=== PATIENT | male | born 1975 | race Caucasian/White ===

== ENCOUNTER → 2019-09-17 10:06 | Outpatient (BNVA) | payer BC, SELFPAY | PROVIDERS: Family Provider Family Medicine; PCP Family Medicine; Visit Provider Registered Nurse | DX: E11.9 Type 2 diabetes mellitus without complications (principal) | CPT/HCPCS: 80053; 83036 ==

== ENCOUNTER → 2020-05-07 11:08 | Outpatient (BNVA) | payer BC, SELFPAY | PROVIDERS: Family Provider Family Medicine; PCP Family Medicine; Visit Provider Registered Nurse | DX: E11.9 Type 2 diabetes mellitus without complications (principal) | CPT/HCPCS: 80053; 80061; 83036; 83721; 85025 ==

== ENCOUNTER 2021-07-13 18:50 | Emergency (ER) | payer SELFPAY ==
[2021-07-13] VITALS (16 sets, daily range): BP systolic 140–180; BP diastolic 85–104; PULSE 86–110; RESP 14–29; TEMP 37.1; O2SAT 91–100; BMI 28.0
--- NOTE | 2021-07-13 18:51 | CTR_ITS ---
PROCEDURE INFORMATION: Exam: CT Head Without Contrast Exam date and time: 07/13/2021 6:55 PM Age: 45 years old Clinical indication: Syncope and collapse; Additional info: AMS TECHNIQUE: Imaging protocol: Computed tomography of the head without contrast. Radiation optimization: All CT scans at this facility use at least one of these dose optimization techniques: automated exposure control; mA and/or kV adjustment per patient size (includes targeted exams where dose is matched to clinical indication); or iterative reconstruction. COMPARISON: CT head wo con* [id number] 01/19/2016 9:31 PM RADIATION DOSE METRICS: Total DLP (mGy-cm): 1437.75 FINDINGS: Brain: Normal. No hemorrhage. Unremarkable white matter. No mass effect. Cerebral ventricles: No ventriculomegaly. Paranasal sinuses: Mucosal thickening in the left frontal sinus. The other sinuses are clear. No air-fluid level. Mastoid air cells: Visualized mastoid air cells are well aerated. Bones/joints: Unremarkable. No acute fracture. Soft tissues: Unremarkable. CT/CT head wo con* [id number] IMPRESSION: No acute intracranial abnormality.
--- NOTE | 2021-07-13 18:59 | CTR_ITS ---
PROCEDURE INFORMATION: Exam: CT Angiography Head With Contrast, Arteriography Exam date and time: 07/13/2021 7:26 PM Age: 45 years old Clinical indication: Syncope and collapse; Additional info: Ams-acute unresponsive on arrival TECHNIQUE: Imaging protocol: Computed tomography angiography of the head with contrast. Exam focused on the arteries. 3D rendering (Not supervised by radiologist): MIP and/or 3D reconstructed images were created by the technologist. Radiation optimization: All CT scans at this facility use at least one of these dose optimization techniques: automated exposure control; mA and/or kV adjustment per patient size (includes targeted exams where dose is matched to clinical indication); or iterative reconstruction. Contrast material: OMNIPAQUE 350; Contrast volume: 75 ml; Contrast route: INTRAVENOUS (IV); COMPARISON: CT head wo con* [id number] 07/13/2021 6:55 PM RADIATION DOSE METRICS: Total DLP (mGy-cm): 2260 FINDINGS: ANTERIOR CIRCULATION: Right internal carotid artery: Unremarkable. Intracranial segment is patent with no significant stenosis. No aneurysm. Right middle cerebral artery: Unremarkable. No occlusion or significant stenosis. No aneurysm. Right anterior cerebral artery: Unremarkable. No occlusion or significant stenosis. No aneurysm. Left internal carotid artery: Unremarkable. Intracranial segment is patent with no significant stenosis. No aneurysm. Left middle cerebral artery: Unremarkable. No occlusion or significant stenosis. No aneurysm. Left anterior cerebral artery: Unremarkable. No occlusion or significant stenosis. No aneurysm. POSTERIOR CIRCULATION: Right vertebral artery: Unremarkable. No occlusion or significant stenosis. No aneurysm. Left vertebral artery: Unremarkable. No occlusion or significant stenosis. No aneurysm. Basilar artery: Unremarkable. No occlusion or significant stenosis. No aneurysm. Right posterior cerebral artery: Unremarkable. No occlusion or significant stenosis. No aneurysm. Left posterior cerebral artery: There is moderate severity short segment stenosis at the P1 segment origin of the left posterior cerebral artery without occlusion. Brain: No definite mass, mass effect, or midline shift. Cerebral ventricles: No ventriculomegaly. Bones/joints: Unremarkable. No acute fracture. Soft tissues: Unremarkable. PROCEDURE INFORMATION: Exam: CT Angiography Neck With Contrast Exam date and time: 07/13/2021 7:26 PM Age: 45 years old Clinical indication: Syncope and collapse; Additional info: Ams-acute unresponsive on arrival TECHNIQUE: Imaging protocol: Computed tomography angiography of the neck with contrast. 3D rendering (Not supervised by radiologist): MIP and/or 3D reconstructed images were created by the technologist. Radiation optimization: All CT scans at this facility use at least one of these dose optimization techniques: automated exposure control; mA and/or kV adjustment per patient size (includes targeted exams where dose is matched to clinical indication); or iterative reconstruction. Contrast material: OMNIPAQUE 350; Contrast volume: 75 ml; Contrast route: INTRAVENOUS (IV); COMPARISON: CT head wo con* [id number] 07/13/2021 6:55 PM RADIATION DOSE METRICS: Total DLP (mGy-cm): 2260 FINDINGS: Right common carotid artery: No stenosis. No dissection or occlusion. Right internal carotid artery: No significant stenosis of the extracranial segment. No dissection or occlusion. Small volume plaque in the bifurcation. Right external carotid artery: No occlusion or stenosis of the origin. Left common carotid artery: No stenosis. No dissection or occlusion. Left internal carotid artery: No significant stenosis of the extracranial segment. No dissection or occlusion. Small volume plaque in the bifurcation. Left external carotid artery: No occlusion or stenosis of the origin. Right vertebral artery: No stenosis. No dissection or occlusion. Left vertebral artery: No stenosis. No dissection or occlusion. Soft tissues: Normal. No significant soft tissue swelling. Bones/joints: No acute fracture. CT/CT angio headneck* [id number] IMPRESSION: Negative for intracranial large arterial vessel occlusion. IMPRESSION: Less than 50% carotid artery stenosis. REFERENCES: NASCET CRITERIA. The degree of internal carotid artery stenosis is based on NASCET criteria. Normal is no stenosis. Mild is less than 50% stenosis. Moderate is 50-69% stenosis. Severe is 70% to 99% stenosis. Total occlusion is no detectable patent lumen.
--- NOTE | 2021-07-13 18:59 | ECG_ITS ---
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 Measurements Intervals [place] Rate: 107 P: 23 MN: 136 QRS: 1 QRSD: 97 T: 51 QT: 343 QTc: 459 Interpretive Statements SINUS TACHYCARDIA NONSPECIFIC T-WAVE ABNORMALITY Compared to ECG 05/15/2018 03:47:17 T-wave abnormality now present Sinus rhythm no longer present Incomplete right bundle-branch block no longer present Electronically Signed On 07-13-2021 20:46:39 CDT by Khoa King M.D. [id number]
--- NOTE | 2021-07-13 18:59 | XRR_ITS ---
PROCEDURE INFORMATION: Exam: XR Chest Exam date and time: 07/13/2021 7:08 PM Age: 45 years old Clinical indication: Shortness of breath; Additional info: AMS TECHNIQUE: Imaging protocol: XR of the chest. Views: 1 view. COMPARISON: CR Chest 1 [place] [id number] 05/15/2018 12:39 AM FINDINGS: Lungs: Unremarkable. No consolidation. Pleural spaces: Unremarkable. No pleural effusion. No pneumothorax. Heart/Mediastinum: Unremarkable. No cardiomegaly. Bones/joints: Unremarkable. XR/XR chest 1V portable [id number] IMPRESSION: No acute findings.
--- NOTE | 2021-07-13 19:00 | W.ED.AMS ---
HPI - Altered Mental Status General: Chief Complaint: Altered Mental Status Stated Complaint: AMS, CP, SOB Time Seen by Provider: 07/13/21 18:58 Limitations: altered mental status History of Present Illness: Mr. Montes De Oca is a 45-year-old gentleman with history of poorly controlled diabetes who presents to the emergency department due to altered mental status. Upon initial presentation history is limited by patient's mental status. Apparently, per EMS report, he was at work when he had severe onset suddenly of chest pain and shortness of breath. He went to the bathroom and was subsequently found down with twitching like movements. EMS administered Ativan which stopped these movements. No reported history of seizures. History otherwise limited by mental status changes. Onset (ago): minute(s) Severity: severe Review of Systems General: Reports: ROS unobtainable due to mental status PFS ED PFSH: Medical History Diabetes type 2, controlled Social History Smoking and tobacco status: never smoked Physical Exam Const: EXAM LIMITATIONS: altered mental status GENERAL APPEARANCE: well developed, lethargic and ill appearing ORIENTATION/CONSCIOUSNESS: Yes lethargic HENMT: COMMON NORMALS: normocephalic and atraumatic HEAD & SCALP: normocephalic and atraumatic THROAT: posterior oropharynx normal Eye: COMMON NORMALS: conjunctivae normal CONJUNCTIVA: Yes conjunctivae normal SCLERA: sclerae normal Neck/C-Spine: COMMON NORMALS: supple GENERAL: Yes trachea midline Resp: COMMON NORMALS: normal respiratory effort AUSCULTATION: diminished lung sounds Cardio: COMMON NORMALS: regular rhythm RATE: tachycardic RHYTHM: regular rhythm GI: COMMON NORMALS: Soft to palpation PALPATION: Yes Soft to palpation and No Tenderness to palpation present (GI) PERCUSSION: normal to percussion Extremity: GENERAL: Yes normal exam except as noted and No edema Neuro: SENSORIUM/ORIENTATION: Yes Orientation impaired and Yes lethargic Psych: MEMORY/COGNITION: Yes cognition grossly impaired Course ED course: - Patient was seen and evaluated by me at bedside - Patient placed on cardiac monitors, IV access obtained -Labs and x-ray personally interpreted by me. EKG showing sinus rhythm with nonspecific ST segment abnormalities, no STEMI. - Initial evaluation notable for exam as above, patient with altered mental status unresponsive to sternal rub initially - Labs notable for no significant hematologic abnormality to explain symptoms. ABG without acute derangement to explain mental status change. Evidence of dehydration including decreased bicarb and increased anion gap on on metabolic panel. Patient does have a history of diabetes though in the context of normal blood pH I feel that a separate etiology is far more likely including possible seizure and/or dehydration related to alcohol misuse for cause of abnormalities. -Given reported severe chest pain and shortness of breath prior to acute alteration in mental status in addition to reported sensory changes advanced imaging is required. Imaging notable for no acute intracranial hemorrhage or mass. Chest x-ray without obvious abnormality. Head and neck CTA as well as chest CTA negative for acute vascular pathology to explain symptoms - Upon serial reexamination after treatment the patient was improved. He was able to ambulate though does still reports subjective symptoms. He tolerated p.o. intake. - Based on patient history, evaluation, and testing as interpreted the most likely cause of the patient's condition is unclear cause of chest pain and acute alteration in mental status. Seizure is probably top consideration though in the absence of seizure history patient does not require antiepileptics at this time. Case was discussed with neurology. - The results of ED evaluation were discussed with the patient including prescriptions and/or symptomatic cares (if applicable) including appropriate and responsible use, followup plan, and return precautions. The patient verbalized understanding and felt safe for discharge. - Patient discharged in satisfactory condition. Note: Click bubbles or prepopulated ernst in note writing are used for assistance with data collection and billing and are inherently more limited than narrative and other text portions of this note. Please use narrative for additional clinical history and defer to narrative/free test for any case of contradictory information. If information appears in only free text or click bubble it should be considered present or absent as reported. Please contact note technical document writer for clarifications of clinical information or contradictory information. MDM is a brief summary, contradictory or erroneous seeming information should be clarified and full note should be reviewed. Vital Signs: Vital signs: Vital Signs Temperature 98.7 F 07/13/21 19:04 Pulse Rate 86 07/14/21 00:43 Respiratory Rate 18 07/14/21 00:43 Blood Pressure 151/91 07/14/21 00:43 Pulse Oximetry 98 07/14/21 00:43 MDM - Altered Mental Status Medical Decision Making 45-year-old gentleman presenting with acute alteration of mental status after severe chest pain and shortness of breath as well as reported paresthesias. Laboratory studies notable for likely dehydration, normal pH noted on ABG. Imaging negative for acute finding to explain symptoms. Exact etiology is unclear though this may be first-time seizure. Patient able to ambulate end mental status improved at time of emergency department discharge. Medical Records I reviewed the patient's medical records. Lab Data I reviewed the patient's lab results. : 07/13/21 19:02 07/13/21 19:[address] 07/13/21 18:51 IMPRESSION: No acute intracranial abnormality. Chest X-Ray 07/13/21 18:59 IMPRESSION: No acute findings. Head/Neck CTA 07/13/21 18:59 IMPRESSION: Negative for intracranial large arterial vessel occlusion. IMPRESSION: Less than 50% carotid artery stenosis. REFERENCES: NASCET CRITERIA. The degree of internal carotid artery stenosis is based on NASCET criteria. Normal is no stenosis. Mild is less than 50% stenosis. Moderate is 50-69% stenosis. Severe is 70% to 99% stenosis. Total occlusion is no detectable patent lumen. Chest CTA 07/13/21 19:03 IMPRESSION: 1. No acute finding. Laboratory Results WBC 7.8 10^3/uL (4.0-10.0) 07/13/21 19: RBC 4.79 10^6/uL (4.1-5.3) 07/13/21 19: Hgb 14.6 g/dL (11.7-16.6) 07/13/21 19: Hct 41.1 % (42.0-52.0) L 07/13/21 19: MCV 85.8 fl (80-94) 07/13/21 19: MCH 30.5 pg (28.0-34.0) 07/13/21 19: MCHC 35.5 g/dL (30.0-36.0) 07/13/21 19: RDW 11.7 % (12.1-15.1) L 07/13/21 19: Plt Count 217 10^3/cmm (130-400) 07/13/21 19:02 MPV 10.6 fL (7.4-10.4) H 07/13/21 19:02 Neut % (Auto) 69.5 % 07/13/21 19:02 Lymph % (Auto) 19.4 % 07/13/21 19:02 [place] % (Auto) 8.4 % 07/13/21 19:02 Eos % (Auto) 1.8 % 07/13/21 19:02 Baso % (Auto) 0.4 % 07/13/21 19:02 Neut # (Auto) 5.41 10^3/uL (1.8-7.7) 07/13/21 19:02 Lymph # (Auto) 1.5 10^3/uL (0.8-4.8) 07/13/21 19:02 [place] # (Auto) 0.7 10^3/uL (0.2-0.9) 07/13/21 19:02 Eos # (Auto) 0.1 10^3/uL (0.0-0.8) 07/13/21 19:02 Baso # (Auto) 0.0 10^3/uL (0.0-0.1) 07/13/21 19: Nucleated RBC % (auto) 0 % 07/13/21 19: Nucleated RBCs # 0.0 /100WBC 07/13/21 19:02 PT 14.10 SECONDS (12.1-14.9) 07/13/21 19: INR 1.06 (0.8-1.2) 07/13/21 19: APTT 23.7 SECONDS (23.9-36.7) L 07/13/21 19:02 Specimen Type Arterial 07/13/21:43 Sample Site Radial, left 07/13/21:43 ABG pH 7.42 (7.35-7.45) 07/13/21: ABG pCO2 32.9 mmHg (35-45) L 07/13/21: ABG pO2 65.8 mmHg (80.0-100.0) L 07/13/21:43 ABG HCO3 21.3 mmol/L (22-26) L 07/13/21: ABG Base Excess -2.3 mmol/L (-2.0-2.0) L 07/13/21 19:43 Narendra Test Pos 07/13/21 19:43 Hematocrit 44.9 % (42-52) 07/13/21 19:43 O2 Delivery Device Nc 07/13/21 19:43 O2 Liters/Min 2.0 % 07/13/21 19:43 Furniture Decals Inspector ID Antione 07/13/21 19:43 Sodium 129 mmol/L (136-145) L 07/13/21 19:02 Potassium 3.5 mmol/L (3.5-5.1) 07/13/21 19:02 Chloride 92 mmol/L (98-107) L 07/13/21 19:02 Carbon Dioxide 16 mmol/L (22-29) L 07/13/21 19:02 Anion Gap 24.5 (5-19) H 07/13/21 19:02 BUN 12 mg/dL (6-20) 07/13/21 19:02 Creatinine 0.7 mg/dL (0.7-1.2) 07/13/21 19: GFR Calculation 122.0 mL/min (90-130) 07/13/21 19:02 Glucose 352 mg/dL (65-115) H 07/13/21 19: POC Glucose 361 mg/dL (70-110) H 07/13/21 19:02 Calculated Osmolality 282 mOsm/kg (285-295) L 07/13/21 19:02 Calcium 9.6 mg/dL (8.5-10.5) 07/13/21 19:02 Total Bilirubin 0.4 mg/dL (0.15-1.2) 07/13/21 19:02 AST 25 U/L (0-40) 07/13/21 19:02 ALT 44 U/L (0-41) H 07/13/21 19:02 Alkaline Phosphatase 107 IU/L (40-130) 07/13/21 19:02 Creatine Kinase 60 U/L (39-308) 07/13/21 19:02 Troponin T Baseline 12 ng/L (0-15) 07/13/21 19:02 Troponin T 120 Minute 12.52 ng/L (0-15) 07/13/21 21:05 Delta Troponin T 0.52 ABS# (0-10) 07/13/21 21:05 Total Protein 6.8 g/dL (6.6-8.7) 07/13/21 19:02 Albumin 4.2 g/dL (3.5-5.2) 07/13/21 19:02 Globulin 2.6 g/dL (1.3-4.6) 07/13/21 19:02 Urine Color Straw (Yellow) 07/13/21 20:07 Urine Appearance Clear (CLEAR) 07/13/21 20:07 Urine pH 5 (5-7) 07/13/21 20:07 Ur Specific Whiting 1.005 (1.005-1.030) 07/13/21 20:07 Urine Protein Neg (Negative) 07/13/21 20:07 Urine Glucose (UA) 4+ (Normal) H 07/13/21 20:07 Urine Ketones 1+ (Negative) H 07/13/21 20:07 Urine Blood Neg (Negative) 07/13/21 20:07 Urine Nitrate Negative (Negative) 07/13/21 20:07 Urine Bilirubin Neg (Negative) 07/13/21 20:07 Urine Urobilinogen Norm mg/dL (Negative) 07/13/21 20:07 Ur Leukocyte Esterase Negative (Negative) 07/13/21 20:07 Urine Opiates Screen Negative ng/mL (Negative) 07/13/21 20:07 Ur Barbiturates Screen Negative ng/mL (Negative) 07/13/21 20:07 Ur Phencyclidine Scrn Negative ng/mL (Negative) 07/13/21 20:07 Ur Amphetamines Screen Negative ng/mL (Negative) 07/13/21 20:07 U Benzodiazepines Scrn Negative ng/mL (Negative) 07/13/21 20:07 Urine Cocaine Screen Negative ng/mL (Negative) 07/13/21 20:07 U Marijuana (THC) Screen Negative ng/mL (Negative) 07/13/21 20:07 Ethyl Alcohol 23 mg/dL (0-10) H 07/13/21 19:02 Serum Ketones Negative (Negative) 07/13/21 19:02 Critical Care Time Critical Care Time: Critical Care Time: Yes Total Critical Care Time: 50 Attestation: Due to a high probability of clinically significant, possibly life threatening deterioration, the patient required my highest level of attention and preparedness to intervene emergently and I personally spent this critical care time directly and personally managing the patient. This critical care time included obtaining a history; examining the patient; pulse oximetry; ordering and review of laboratory and imaging studies; arranging urgent treatment with development of a management plan; evaluation of patient's response to treatment; frequent reassessment; and, discussions with other providers as applicable. It was exclusive of separately billable procedures. Discharge Plan Discharge Patient Disposition: Home Clinical Impression: Seizure-like activity, Altered mental status, Chest pain, Shortness of breath, Uncontrolled diabetes mellitus Condition: Stable Prescriptions: No Action propranolol PO 0RF metformin 500 mg tablet 1,000 mg PO BID Qty: 90 1RF gemfibrozil 600 mg tablet 600 mg PO BID 0RF citalopram 20 mg tablet 20 mg PO QDAY 0RF ascorbic acid (vitamin C) [Vitamin C] 1,000 mg tablet 2 gm PO Q6H 0RF multivitamin Capsule 1 cap PO QAM 0RF Jardiance 25 mg tablet 25 mg PO DAILY Qty: 90 0RF Rx Instructions: 340B Bydureon 2 mg/0.65 mL pen injector See Rx Instructions .ROUTE .COMPLEX Qty: 12 1RF Dose Instruction: INJECT 2MG UNDER THE SKIN EVERY 7 DAYS. Rx Instructions: INJECT 2MG UNDER THE SKIN EVERY 7 DAYS. 340 b Discharge Orders: Discharge ED (Routine); Ordered 07/13/21 Ordered By: Alexandr Pickard Referrals: Oral Prado Jr, MD [Staff Physician] - Discharge Diet: Usual diet Patient Instructions: Chest Pain (ED), New-Onset Seizure in Adults (ED), Diabetic Hyperglycemia (ED) Activity Restrictions/Additional Instructions: Thank you for visiting the emergency department. You were seen and evaluated for altered mental status. The exact cause of your symptoms is unclear however based on ED evaluation is possibly related to new onset seizure. This requires further evaluation in the outpatient setting and I will message our case management regarding scheduling outpatient EEG. Given the possibility of seizure you should follow certain precautions that probably fit in the category of not performing tasks that would be dangerous if you had another seizure, examples include do not drive or operate machinery, do not swim or take a bath in the tub unsupervised, do not cook over open flame, do not climb tall objects. Your labs were notable for dehydration as well as elevated blood sugar. Please ensure that you stay hydrated and follow-up with your primary care provider regarding your medications for diabetes. Regarding your chest pain I believe that your overall low risk by heart score and further evaluation can be directed by your primary care provider with consideration of further cardiac testing. Please return to the emergency department for recurrent episodes or anything else that you are concerned about and feel needs emergency department evaluation. Coding Level of Care Code ED Patient Safety Coordinator for Nick López
--- NOTE | 2021-07-13 19:03 | CTR_ITS ---
PROCEDURE INFORMATION: Exam: CTA Chest With Contrast Exam date and time: 07/13/2021 7:32 PM Age: 45 years old Clinical indication: Other: Syncope, collapse, loc; Additional info: Chest pain, SOB, syncope TECHNIQUE: Imaging protocol: Computed tomographic angiography of the chest with contrast. 3D rendering (Not supervised by radiologist): MIP and/or 3D reconstructed images were created by the technologist. Radiation optimization: All CT scans at this facility use at least one of these dose optimization techniques: automated exposure control; mA and/or kV adjustment per patient size (includes targeted exams where dose is matched to clinical indication); or iterative reconstruction. Contrast material: OMNIPAQUE 350; Contrast volume: 75 ml; Contrast route: INTRAVENOUS (IV); COMPARISON: CR (CHEST, ) 07/13/2021 7:08 PM RADIATION DOSE METRICS: Total DLP (mGy-cm): 594.04 FINDINGS: Pulmonary arteries: No filling defects identified in the pulmonary arteries. Evaluation is limited by breathing motion artifact. Aorta: Unremarkable. No aortic aneurysm. No aortic dissection. Lungs: Shallow inspiration with crowding and mild atelectasis. No consolidation. Pleural spaces: Unremarkable. No pneumothorax. No pleural effusion. Heart: Unremarkable. No cardiomegaly. No pericardial effusion. Lymph nodes: Unremarkable. No enlarged lymph nodes. Bones/joints: Unremarkable. No acute fracture. Soft tissues: Unremarkable. CT/CT angio chest PE [facility] [id number] IMPRESSION: 1. No acute finding.
[2021-07-13 19:06] LABS: Glucose Point of Care 361 mg/dL (70-110)
--- NOTE | 2021-07-13 19:08 | PC.NURSE ---
190 assumed pt care from Kristal SPARROW
[2021-07-13 19:16] LABS: Basophils % 0.4 %; Eosinophils # 0.1 10^3/uL (0.0-0.8); Eosinophils % 1.8 %; Hematocrit 41.1 % (42.0-52.0); Hemoglobin 14.6 g/dL (11.7-16.6); Lymphocytes # 1.5 10^3/uL (0.8-4.8); Lymphocytes % 19.4 %; Mean Corpuscular HGB Conc 35.5 g/dL (30.0-36.0); Mean Corpuscular Hemoglobin 30.5 pg (28.0-34.0); Mean Corpuscular Volume 85.8 fl (80-94); Mean Platelet Volume 10.6 fL (7.4-10.4); Monocytes # 0.7 10^3/uL (0.2-0.9); Monocytes % 8.4 %; Neutrophils # 5.41 10^3/uL (1.8-7.7); Neutrophils % 69.5 %; Nucleated Red Blood Cells % 0 %; Platelet Count 217 10^3/cmm (130-400); Red Blood Count 4.79 10^6/uL (4.1-5.3); Red Cell Distribution Width 11.7 % (12.1-15.1); White Blood Count 7.8 10^3/uL (4.0-10.0)
[2021-07-13 19:28] LABS: INR 1.06 (0.8-1.2)
[2021-07-13 19:29] LABS: Partial Thromboplastin Time 23.7 SECONDS (23.9-36.7)
[2021-07-13] MEDS: iohexol 350 mg/mL 100 mL Btl IV ×2 (19:31→19:34)
[2021-07-13 19:35] LABS: Alanine Aminotransferase 44 U/L (0-41); Albumin Level 4.2 g/dL (3.5-5.2); Alcohol Level 23 mg/dL (0-10); Alkaline Phosphatase 107 IU/L (40-130); Aspartate Amino Transferase 25 U/L (0-40); Blood Urea Nitrogen 12 mg/dL (6-20); Calcium 9.6 mg/dL (8.5-10.5); Carbon Dioxide 16 mmol/L (22-29); Chloride 92 mmol/L (98-107); Globulin 2.6 g/dL (1.3-4.6); Glucose 352 mg/dL (65-115); Osmolality Calculated 282 mOsm/kg (285-295); Sodium 129 mmol/L (136-145); Total Bilirubin 0.4 mg/dL (0.15-1.2); Total Protein 6.8 g/dL (6.6-8.7)
[2021-07-13 19:39] LABS: Troponin(5th) Baseline 12 ng/L (0-15)
[2021-07-13 19:46] LABS: Ketone (Acetest) Serum Negative (Negative)
[2021-07-13 19:50] LABS: Anion Gap 24.5 (5-19); Potassium 3.5 mmol/L (3.5-5.1)
[2021-07-13 19:52] LABS: ABG PCO2 32.9 mmHg (35-45); ABG PH Result 7.42 (7.35-7.45); Arterial Blood Gas Hematocrit 44.9 % (42-52); Base Excess ABG -2.3 mmol/L (-2.0-2.0); Blood Gas Allen Test Pos; Blood Gas Sample Type Arterial; HCO3 ABG 21.3 mmol/L (22-26); PO2 ABG 65.8 mmHg (80.0-100.0)
[2021-07-13 19:54] LABS: Blood Gas Sample Site Radial, left; Oxygen Device NC
[2021-07-13] MEDS: sodium chloride 0.9% 1,000 ML 999 ML IV (20:00)
[2021-07-13 20:15] LABS: Add Urine Microscopic? NO; Charge for UA Resulting for Rev
[2021-07-13 20:19] LABS: Bilirubin Urine Neg (Negative); Blood Urine Neg (Negative); Glucose Urine UA 4+ (Normal); Ketones Urine 1+ (Negative); Leukocyte Esterase Urine Negative (Negative); Nitrate Urine Negative (Negative); Protein Urine Neg (Negative); Specific Gravity, Urine 1.005 (1.005-1.030); Urine Appearance Clear (CLEAR); Urine Color Straw (Yellow); Urobilinogen Urine Norm (Negative); pH Urine 5 (5-7)
[2021-07-13 20:25] LABS: Creatine Phosphokinase 60 U/L (39-308)
[2021-07-13 20:26] LABS: Amphetamines Screen Urine Negative (Negative); Barbiturates Screen Urine Negative (Negative); Benzodiazepines Screen Urine Negative (Negative); Cocaine Screen Urine Negative (Negative); Opiate Screen Urine Negative (Negative); PCP Screen Urine Negative (Negative); THC Screen Urine Negative (Negative)
--- NOTE | 2021-07-13 20:59 | ECG_ITS ---
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 Measurements Intervals [place] Rate: 105 P: 30 VT: 167 QRS: -5 QRSD: 100 T: 47 QT: 345 QTc: 457 Interpretive Statements SINUS TACHYCARDIA MINIMAL VOLTAGE CRITERIA FOR LVH, CONSIDER NORMAL VARIANT [MEETS CRITERIA IN ONE OF: R(aVL), S(V1), R(V5), R(V5/V6)+S(V1)] POSSIBLE ANTERIOR MYOCARDIAL INFARCTION , OF INDETERMINATE AGE [30 ms Q WAVE IN V3/V4, OR R < 0.2 mV IN V4] Compared to ECG 07/13/2021 19:02:57 Myocardial infarct finding now present T-wave abnormality no longer present Electronically Signed On 07-13-2021 22:33:14 CDT by Khoa King M.D. [id number]
[2021-07-13 21:51] LABS: Troponin 5 2HR 12.52 ng/L (0-15)
[2021-07-13 21:57] LABS: Troponin 5 2HR Delta 0.52 ABS# (0-10)
[2021-07-13] MEDS: ketorolac 30 mg/mL INJ 15 MG IVP (23:33)
[2021-07-14] VITALS: BP 142/94; PULSE 95; RESP 20; O2SAT 97
[2021-07-14 00:43] VITALS: BP 151/91; PULSE 86; RESP 18; O2SAT 98
--- NOTE | 2021-07-20 17:47 | DCPLANNER ---
associate product manager had message to schedule an outpatient EEG for patient. associate product manager faxed signed order for EEG to the office of Dr. Paul, who will call patient with appointment information.
--- NOTE | 2021-07-28 18:17 | DCPLANNER ---
Addendum entered by Edyta Pretty 11/02/21 14:20: Patient did not attend appointment. Addendum entered by Edyta Pretty 07/29/21 16:56: Patient has a follow up appointment scheduled for an EEG for Monday, August 11, 2021 at 3:00 at neurology. Original Note: manager terminal had message to schedule an out patient EEG for patient. manager terminal faxed signed order to the office of . Clinic will call patient with appointment information. manager terminal sent patients information thru workload for clinic to be watching for order.
== END 2021-07-14 00:30 | disposition home or self-care (01) ==
PROVIDERS: Emergency Provider Emergency Medicine; PCP Family Medicine
DX: R41.82 Altered mental status, unspecified (principal); E86.0 Dehydration; R07.9 Chest pain, unspecified; R06.02 Shortness of breath; E11.65 Type 2 diabetes mellitus with hyperglycemia; Z79.899 Other long term (current) drug therapy; Z79.84 Long term (current) use of oral hypoglycemic drugs
CPT/HCPCS: 36416; 36600; 70450; 70496; 70498; 71045; 71275; 80053; 80306; 80307; 81003; 82009; 82550; 82803; 82962; 84484; 85025; 85610; 85730; 93005; 96361; 96374; 99284; J1885; J7030; Q9967